=== PATIENT | male | born 1975 | race Caucasian/White ===

== ENCOUNTER → 2019-01-28 | Outpatient (CLI) | payer BC ==
[~2019-01-28] MED LIST: DIAZ5TAB4 PO; TRAM50TA PO
[2019-01-28 12:33] LABS: BASO % 1 % (0-3); EOS # 0.1 x10^3/uL (0.0-0.7); EOS % 1 % (0-3); HEMATOCRIT 47.7 % (39.0-53.0); HEMOGLOBIN 16.2 g/dL (13.0-17.5); LYMPH # 1.9 x10^3/uL (1.0-4.8); LYMPH % 28 % (24-48); MEAN CORPUSCULAR HEMOGLOBIN 30 pg (25-35); MEAN CORPUSCULAR HGB CONC 34 g/dL (31-37); MEAN CORPUSCULAR VOLUME 88 fL (79-100); MONO # 0.3 x10^3/uL (0.0-1.1); MONO % 4 % (0-9); NEUT # 4.5 x10^3/uL (1.8-7.7); NEUT % 66 % (31-73); PLATELET COUNT 258 x10^3/uL (140-400); RED BLOOD COUNT 5.39 x10^6/uL (4.30-5.70); RED CELL DISTRIBUTION WIDTH 13.2 % (11.5-14.5); WHITE BLOOD COUNT 6.9 x10^3/uL (4.0-11.0)
[2019-01-28 12:53] LABS: ALBUMIN 4.1 g/dL (3.4-5.0); ALBUMIN/GLOBULIN RATIO 1.4 (1.0-1.7); CALCIUM 9.2 mg/dL (8.5-10.1); CREATININE 1.1 mg/dL (0.7-1.3); GFR 73.1; POTASSIUM 4.3 mmol/L (3.5-5.1); TOTAL BILIRUBIN 0.3 mg/dL (0.2-1.0)
== END | disposition home or self-care (01) ==
LOC: SURGPAT 11:50
PROVIDERS: ATTEND Neurological Surgery
DX: Z01.818 Encounter for other preprocedural examination (principal); M51.17 Intervertebral disc disorders with radiculopathy, lumbosacral region; Z88.5 Allergy status to narcotic agent; Z88.8 Allergy status to other drugs, medicaments and biological substances
CPT/HCPCS: 36415; 80053; 85025; 87641

== ENCOUNTER 2019-02-07 07:09 | Observation (INO) | payer BC ==
--- NOTE | 2019-02-06 18:51 | HP ---
ADMIT DATE: 02/07/2019 DATE OF SURGERY: 02/07/2019 HISTORY OF PRESENT ILLNESS: The patient is a pleasant 43-year-old who in 2010 underwent a fusion at L4-L5. He did well from that operation. His current problem is burning in his right hip and groin region. He also notices throbbing in the right leg. There is a pain which radiates into the anterior thigh and leg as well. He also has diffuse right foot numbness. He does not notice weakness. The problem started in 06/2018. He rates his pain currently as a 4-5/10. He feels that the pain is slowly worsening. Standing markedly increases pain. Walking seems to help. When I saw him last, he was improving, but says that he has now significantly worse. He did undergo epidural steroid injections recently, which he said helped him some. PAST MEDICAL HISTORY: Kidney stones. PAST SURGICAL HISTORY: Right tympanic repair in 2004, appendectomy in 2005, L4-L5 fusion in 2010. FAMILY HISTORY: Heart problems and disease. SOCIAL HISTORY: Employed as a teacher. . Exercises daily. Denies substance abuse. Smokes cigarettes daily. Drinks coffee and tea daily. ALLERGIES: CODEINE, MORPHINE, LORTAB AND VICODIN. CURRENT MEDICATIONS: Tramadol, ondansetron, diazepam, Benadryl. PHYSICAL EXAMINATION: NEUROSURGERY EXAMINATION: GENERAL APPEARANCE: Alert, pleasant, no distress. HEAD: Normocephalic . SKIN: Warm and dry, well-healed lumbar incision. MUSCULOSKELETAL: Lumbar paraspinal muscle bulk is normal, restricted range of motion of lumbar spine, ubiw-[id number] tenderness of lower lumbar spine with palpation, normal range of motion of the lower extremities bilaterally. EXTREMITIES: No clubbing, cyanosis or edema. NEUROLOGIC: Alert and oriented x 3, normal recent and remote memory. Strength 5/5 in bilateral lower extremities, sensory was intact to light touch in the lower extremities bilaterally except for decrease in distal right anterior thigh and leg as well as right foot diffusely, reflexes are trace and symmetric in bilateral lower extremities, positive straight leg raising on the right, negative straight leg raising on the left, normal gait. IMAGING: I reviewed again his lumbar MRI scan. On that study, the fusion at L4-L5 is well seen. At L3-L4, there is a broad-based disc bulge with a right central subarticular extrusion. This does appear to contact and displace the right L4 root. At L5-S1, there is a large wide central disc protrusion which resulted in abutment and displacement of the S1 nerve root, combined with moderate stenosis. ASSESSMENT/ PLAN: At this point, I feel the majority of his symptoms are coming from L3-L4, but I do think that L5-S1 is contributing to his problem. My recommendation at this point is to remove his hardware at L4-L5 on the right and perform microsurgery at L3-L4 as well as L5-S1 to decompress the L4 root at L3-L4 and S1 root at L5-S1. I did discuss surgery with him. I discussed the risks and expected postoperative course. He understands. He would like to go ahead. We will make the arrangements. NATALIYA MONTENEGRO MD DR: MELINDA/mansi JOB#: [id number] / [id number] ED
[~2019-02-07] VITALS: Ht 175.3 cm; Wt 66.2 kg
[~2019-02-07 07:09] MED LIST changes: +BACITRACIN 50,000 UNIT in IV NORMAL SALINE 1000ML BAG 1,000 ML IRR ONE; +HYDROmorphone 2 MG/ML VIAL IV PRN; +IV RINGERS,LACTATED 1000ML 1,000 ML IV SCH; +LIDOCAINE 1% PF 2 ML VIAL. ID PRN; +MORPHINE SULFATE 2 MG/ML VIAL. IV PRN; +ONDANSETRON PF 4 MG/2 ML VIAL. IV PRN; +PROCHLORPERAZINE 10 MG/2 ML VIAL. IV PRN; +fentaNYL PF VIAL 100 MCG/2 ML VIAL IV PRN
[2019-02-07] MEDS ORDERED: KETOROLAC 60 MG/2 ML VIAL. ONE (07:24)
[2019-02-07] MEDS ORDERED: GELATIN SPONGE SIZE 100. ONE (07:24)
[2019-02-07] MEDS ORDERED: THROMBIN TOPICAL 20,000 UNIT SPRAY.SYRN KIT TP ONE (07:24)
[2019-02-07] MEDS ORDERED: BUPIVACAINE-EPI 0.5%-1:200000 MPF 30 ML VIAL. INJ ONE (08:00)
[2019-02-07] MEDS ORDERED: ceFAZolin 2GM PREMIX 2 GM/50 ML BAG IV ONE (08:00)
[2019-02-07] MEDS ORDERED: ROCURONIUM 50 MG/5 ML VIAL. ONE (08:17)
[2019-02-07] MEDS ORDERED: ONDANSETRON PF 4 MG/2 ML VIAL. ONE (08:19)
[2019-02-07] MEDS ORDERED: LIDOCAINE 2% PF 5 ML VIAL. ONE (08:19)
[2019-02-07] MEDS ORDERED: DEXAMETHASONE SOD PHOS 20 MG/5 ML VIAL. ONE (08:19)
[2019-02-07] MEDS ORDERED: PROPOFOL 20 ML IV ONE (08:19)
[2019-02-07] MEDS ORDERED: REMIFENTANIL 2 MG VIAL. IV ONE (08:39)
[2019-02-07] MEDS ORDERED: MIDAZOLAM HCL/PF 2 MG/2 ML VIAL. ONE (08:40)
[2019-02-07] MEDS ORDERED: fentaNYL PF VIAL 250 MCG/5 ML VIAL ONE (08:40)
[2019-02-07] MEDS ORDERED: GLYCOPYRROLATE 1 MG/5 ML VIAL. ONE (11:18)
[2019-02-07] MEDS ORDERED: NEOSTIGMINE METHYLSULFATE 5 MG/5 ML SYRINGE. ONE (11:18)
[2019-02-07] MEDS ORDERED: DESFLURANE > 120 MINUTES IH ONE (11:30)
[2019-02-07] MEDS ORDERED: traMADol 50 MG TABLET PO PRN (11:45)
[2019-02-07] MEDS ORDERED: 0.9 % SODIUM CHLORIDE 10 ML DISP.SYRIN. IV PRN (11:45)
[2019-02-07] MEDS ORDERED: diphenhydrAMINE HCL 25 MG CAPSULE PO PRN (11:45)
[2019-02-07] MEDS ORDERED: MAGNESIUM HYDROXIDE 2,400 MG/30 ML ORAL.SUSP. PO PRN (11:45)
[2019-02-07] MEDS ORDERED: diphenhydrAMINE 50 MG/ML VIAL IV PRN (11:45)
[2019-02-07] MEDS ORDERED: fentaNYL PF VIAL 100 MCG/2 ML VIAL IVP PRN (11:45)
[2019-02-07] MEDS ORDERED: CALCIUM CARBONATE 500 MG TAB.CHEW PO PRN (11:45)
[2019-02-07] MEDS ORDERED: ONDANSETRON PF 4 MG/2 ML VIAL. IV PRN (11:45)
[2019-02-07] MEDS ORDERED: NALOXONE 0.4 MG/ML VIAL. IV PRN (11:45)
[2019-02-07] MEDS ORDERED: MAG HYDROX/ALUMINUM HYD/SIMETH 30 ML ORAL.SUSP PO PRN (11:45)
[2019-02-07] MEDS ORDERED: METHOCARBAMOL 750 MG TABLET PO PRN (11:45)
[2019-02-07 12:30] VITALS: BP 122/83
[2019-02-07] MEDS ORDERED: POTASSIUM CL 20MEQ D5-0.45NACL 1,000 ML IV SCH (12:30)
--- NOTE | 2019-02-07 12:30 | NUR ---
Arrived to unit by bed from PACU. Drowsy but awakens when spoken to. No c/o at this time. Able to move all extremities without difficulty and has no numbness or tingling. Lower back dressing is d/i and placed new ice pack. THERESA's and TATUM's on bilaterally. IVf's intact and infusing. Oriented to room and controls. Side rails up x's 2. Pt upset about being transferred to floor. Explain pt would be staying the night for observation and pain control. States "I'm suppose to go home today". "I feel good enough to go home". Discussed with pt to recover for couple hours from anesthesia and then will have PT to evaluate. If everything goes well, will notify Dr. Mora. Pt agreed. Cont. monitor.
--- NOTE | 2019-02-07 12:43 | OP ---
DATE OF SURGERY: 02/07/2019 PREOPERATIVE DIAGNOSES: 1. Previous instrumented fusion at L4-L5. 2. Herniated lumbar disc, L3-L4, right, with right lumbar radiculopathy. 3. 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 PROCEDURES PERFORMED: 1. Removal of hardware, right L4-L5. 2. Hemilaminotomy with microdiscectomy L3-L4, right. 3. Hemilaminotomy and microdiscectomy, L5-S1, with decompression of the large central disc herniation and relieving of the lumbar stenosis. The operation was done with SSEP monitoring, fluoroscopy, and microscopic dissection. SURGEON: Bryson Montenegro M.D. ROOFER APPRENTICE: JASSI Rosa, assisted with the surgery. She assisted with the exposure, the micro decompression and diskectomy at both levels, and closure. INDICATIONS FOR PROCEDURE: The patient is a pleasant 43-year-old man, who a number of years ago underwent an instrumented fusion at L4-L5 and did very well. He then developed recurrent problems with low back and right leg pain and was found to have the above-mentioned findings on imaging studies. At first, we spoke about simply decompressing the L3-L4 region, but the large central disc herniation and severe stenosis at L5-S1 were probable factors in his pain as well and I recommended repairing both levels. He understood the surgery, the risks, technique and expected postoperative course, and wished to go ahead. DESCRIPTION OF PROCEDURE: Following general endotracheal anesthesia, the patient was positioned prone on the Campbell table. Lumbar region was prepped and draped in standard fashion. THERESA hose and AV impulse boots were applied for DVT prophylaxis. A microscope was draped. Fluoroscopy was draped and brought into field. Monitoring was established. Ancef 2 grams were given less than 1 hour prior to initiation of the surgery. Using fluoroscopic guidance, a midline posterior incision was made, dissected down through skin and subcutaneous tissue, and I reflected the paraspinal muscles to the right and medially dissected down to the hardware at L4 and then followed this down to the hardware at L5. I removed the nuts, rods, and the screws without any difficulty and then following this, I placed a micro-disc retractor at L3-L4 after obtaining exposure at this region, brought in the microscope, and using the high speed air drill with microscopic technique, I burred down a generous hemilaminotomy. I trimmed away the very thickened ligamentum flavum and exposed the dura and the exiting L4 root. I performed a partial foraminotomy and gently retracted the dura medially. There was an epidural disc fragment, a portion of which was quite easy to remove and a portion of which was densely scarred down, and I worked very gently, gradually teased back and removed multiple disc fragments, entered the disc space, performed a discectomy, and as I worked, the region became very well decompressed and the fragments were removed. I explored carefully. The roots were quite free. I irrigated copiously. I obtained perfect hemostasis during the operation with bipolar cautery as well as bone wax. I then removed the retractor from L3-L4, obtained hemostasis in the muscle and I moved down to L5-S1, and in a similar fashion after confirming my position fluoroscopically burred down a generous hemilaminotomy. I gently retracted the root and there was a very large central disc herniation, which was extended to about the S1 roots and was associated with significant stenosis. I incised the central disc laterally and then I began to tease back and removed multiple disc fragments from an epidural and then a subannular location and as I worked and removed multiple disc fragments, the region gradually became more and more decompressed and the large posterior disc bulge resolved. I explored carefully. I continued to work until I removed all the disc material. I assured myself that the roots were quite free. I irrigated copiously with antibiotic solution and then I removed the retractor, obtained hemostasis in the muscle, irrigated copiously, and closed the wound in layers with absorbable suture. The skin was closed with 4-0 subcuticular stitch. There was a few brief moments of firing of the L5 root during the dissection at L5-S1, but there were no difficulties whatsoever during the operation and at no time did we require to place any but the most gentle retraction with a micro nerve root retractor on the dura and nerve root . I was very pleased with the surgery. BRYSON MONTENEGRO MD DR: MELINDA/mansi JOB#: [id number] / [id number] MTDD
[2019-02-07 13:00] VITALS: BP 129/76
[2019-02-07] MEDS ORDERED: DOCU-109 PO (13:07)
[2019-02-07] MEDS ORDERED: METH-38 PO (13:07)
--- NOTE | 2019-02-07 13:12 | DISCH ---
DISCHARGE INSTRUCTIONS Condition on Discharge Condition on Discharge: Stable Activity After Discharge Activity Instructions for Disc: Resume previous activity, Activity as tolerated Other activity instructions: no driving for a week Bathing Instructions: Shower-keep dressing dry Lifting Instructions after Dis: No heavy lifting, No pulling or pushing, Do not lift >10 pounds Diet after Discharge Additional Diet Restrictions: resume home diet Wound Incision Care Wound/Incision Care: Ice to area for comfort Other wound/incision instructi: may remove dressing in 48 hours if dry then may shower, no soaking Contacting the after DC Call your doctor for: Concerns you may have Follow-Up Follow up with: Dr. Montenegro's nurse in 2 weeks [phone] NATALIYA MONTENEGRO MD Feb 07, 2019 13:12
[2019-02-07 13:30] VITALS: BP 120/80
--- NOTE | 2019-02-07 13:45 | NUR ---
Ambulated to bathroom with steady gait with stand by assist. Voided without difficulty and return back to bed. Anxious to go home.
--- NOTE | 2019-02-07 14:30 | NUR ---
Notified Dr. Mora/Ling SOTO. Both came to unit and spoke with patient. Orders given to discharge.
--- NOTE | 2019-02-07 14:50 | NUR ---
Discharge instructions given to pt and spouse. Answered questions and concerns. Both verbalized understanding. Extra dressings given. Pt discharged home.
[2019-02-07] MEDS ORDERED: diazePAM 5 MG TABLET PO SCH (21:00)
[2019-02-07] MEDS ORDERED: DOCUSATE SODIUM 100 MG CAPSULE. PO SCH (21:00)
--- NOTE | 2019-02-08 22:06 | PATHOLOGY ---
[facility] Accession Number: [id number] . 01 Material submitted: . vertebral column - LUMBAR DISC AND DECOMPRESSION . 01 Clinical history: . Lumbar herniated disc with radiculopathy . 02 Diagnosis: "Lumbar disc and decompression", discectomy and decompression: - Intervertebral disc material with reactive and degenerative changes. - Decalcified bone with bone marrow showing trilineage hematopoiesis, articular cartilage, periosteum, tendon tissue, and skeletal muscle with reactive and degenerative changes. (CLW:[place] [employer]; 02/08/2019) QTP 02/08/2019 1521 Local . 02 Electronically signed: . Angelica Terry MD, Pathologist NPI- [id number] . 01 Gross description: . The specimen is received in formalin, labeled "Yony Valdez, lumbar disc and decompression" and consists of multiple segments of pink-monteiro soft tissue as well as bone and cartilage measuring 4.0 x 2.9 x 1.0 cm in aggregate. A medical office representative portion is submitted in A1 following decalcification. (SDY; 02/07/2019) SYU/SYU 02/07/2019 1535 Local . 02 Pathologist provided ICD-10: M51.36 . 02 CPT . 314937, [id number] Specimen Comment: A courtesy copy of this report has been sent to [phone], [phone] Specimen Comment: [id number] Specimen Comment: Report sent to / DR HOWARD Performed at: 01 [facility] [address], [place], [place] [id number] MD Haris Reyes MD Phone: [phone] Performed at: 02 [facility] [address] [place], [place] [id number] MD Roberto Carlos Diane MD Phone: [phone]
== END 2019-02-07 14:50 | disposition home or self-care (01) ==
LOC: SURG 07:09 → 4 SOUTHEST 14:22
PROVIDERS: ADMIT Neurological Surgery; ATTEND Neurological Surgery
DX: M51.17 Intervertebral disc disorders with radiculopathy, lumbosacral region (principal); M48.061 Spinal stenosis, lumbar region without neurogenic claudication; M51.26 Other intervertebral disc displacement, lumbar region; F17.210 Nicotine dependence, cigarettes, uncomplicated; Z88.5 Allergy status to narcotic agent
CPT/HCPCS: 20680; 63030; 63035; 76000; 88304; 88311; 97116; 97162; 97530; A7015; G0378; G0379; J0696; J1100; J1885; J2001; J2250; J2405; J2704; J2710; J3010; J3490; J7030; J7120